=== PATIENT | female | born 1995 | race Caucasian/White ===

== ENCOUNTER 2019-08-03 00:12 | Emergency (ER) | payer BC ==
[~2019-08-03] VITALS: Ht 160 cm; Wt 59.0 kg
[2019-08-03 00:15] VITALS: BP 120/76
[2019-08-03] MEDS ORDERED: ALBUTEROL SULF8.5 G1 INH ×2 (00:23→00:42)
[2019-08-03] MEDS ORDERED: PREDNISONE20 MG ORAL (00:42)
[2019-08-03] MEDS ORDERED: FLUTICASONE PRO16 G1 NASAL (00:42)
--- NOTE | 2019-08-03 00:44 | Emergency Room Report ---
History of Present Illness General Chief Complaint: Flu Like Symptoms Present Illness HPI Disclaimer: Please note that this report is being documented using [employer] technology. This can lead to erroneous entry secondary to incorrect interpretation by the dictating instrument. HPI: 24-year-old female history of asthma presents for evaluation of shortness of breath and medication refill. Patient states she has had intermittent shortness of breath for the past 2 weeks. She was seen at a different emergency department testing negative for COVID last week. She has been using her albuterol inhaler more frequently but ran out of her Flovent inhaler 2 weeks ago. [place] been able to refill her medications. She is concerned that she only has a few puffs left on her albuterol inhaler and came in for medication refill. She was feeling short of breath earlier today but resolved after administrating albuterol. She denies cough, fever, chest pain, current shortness of breath, vomiting, diarrhea or other symptoms. No recent steroid use. PMH: Asthma PSH: Reviewed Allergies: None reported Social Hx: Non-smoker Allergies: Coded Allergies: No Known Allergies (Unverified , 08/03/19) COVID-19 Screening Contact w/high risk pt: No Recent Travel to affected area: No Experienced COVID-19 symptoms?: No COVID-19 symptoms experienced: Shortness of Breath Patient History Last Menstrual Period: 08/01/19 Review of Systems All Other Systems: negative except mentioned in HPI Physical Exam Vital Signs Date Time Temp Pulse Resp B/P (MAP) Pulse Ox O2 Delivery O2 Flow Rate FiO2 08/03/19 00:18 97.9 84 18 128/84 (99) 93 Room Air General: Awake and alert, no acute distress HEENT: NC/AT. EOMI. Neck: Supple, trachea midline Chest Wall: No tenderness, no deformity Cardiovascular: RRR. S1 and S2 normal. No murmur appreciated Resp: Normal work of breathing. No cough, wheezing or crackles appreciated Skin: Intact. No abrasions, laceration or rash over the exposed skin MSK: Normal tone and bulk. Moving all extremities. No obvious deformity. Neuro: Awake and alert. Mentating appropriately. Medical Decision Making Diagnostic Impression: Primary Impression: Asthma exacerbation ER Course 24-year-old female presents for evaluation of shortness of breath medication refill. She is in no distress, no wheezing, no crackles and no other findings on exam. Her lowest was 99% saturation on room air. Symptoms consistent with upper respiratory infection or asthma exacerbation. She has tested negative for COVID-19 at outside facility last week. Do not believe she requires emergent labs or imaging at this time. We will refill her albuterol, Flovent and start the patient on prednisone for presumed asthma exacerbation. She will be discharged with outpatient follow-up and return with new or worsening symptoms. She understands and agrees with treatment plan Last Vital Signs Date Time Temp Pulse Resp B/P (MAP) Pulse Ox O2 Delivery O2 Flow Rate FiO2 08/03/19 00:18 97.9 84 18 128/84 (99) 93 Room Air Disposition: HOME, SELF-CARE Condition: Stable Scripts Prednisone* (PREDNISONE*) 20 Mg Tablet 40 MG ORAL DAILY for 5 Days, #10 TAB Prov: Win Lockett MD 08/03/19 Fluticasone Propionate* (FLUTICASONE PROPIONATE*) 16 Gm [place].susp 1 SPRAY NASAL TWICE A DAY, #16 GM Prov: Win Lockett MD 08/03/19 Albuterol Sulfate* (Albuterol Sulfate Hfa*) 8.5 Gm Hfa.aer.ad 2 PUFF INH Q3H for , #1 INH Prov: Win Lockett MD 08/03/19 Referrals: [facility] Patient Instructions: Asthma, Adult Additional Instructions: Please follow-up with your primary care doctor in the next 1 to 3 days to discuss this emergency department visit and for reevaluation. If you have any new or worsening symptoms please return to the emergency department for reevaluation. Please note that this report is being documented using [employer] technology. This can lead to erroneous entry secondary to incorrect interpretation by the dictating instrument. Win Lockett MD August 03, 2019 00:44
[2019-08-03 00:50] VITALS: BP 122/80
[2019-08-04] MEDS ORDERED: PREDNISONE20 MG ORAL (18:23)
[2019-08-04] MEDS ORDERED: FLUTICASONE PRO16 G1 NASAL (18:23)
[2019-08-04] MEDS ORDERED: ALBUTEROL SULF8.5 G1 INH (18:23)
== END 2019-08-03 00:50 | disposition home or self-care (01) ==
LOC: EMR 00:37
DX: J45.901 Unspecified asthma with (acute) exacerbation (principal)
CPT/HCPCS: 99282